=== PATIENT | female | born 2000 | race Caucasian/White ===

== ENCOUNTER 2018-07-01 19:24 | Emergency (ER) | payer OTHER ==
[2018-07-01 19:35] VITALS: BP 130/96
[2018-07-01] MEDS ORDERED: LEVO1TAB75 PO (19:40)
--- NOTE | 2018-07-01 19:56 | ER Report ---
History and Physical Time Seen By MD: 19:46 Hx. of Stated Complaint: PT PULLED LEFT THUMB FINGERNAIL BACK. HPI/ROS CHIEF COMPLAINT: Partial nail avulsion HISTORY OF PRESENT ILLNESS: 17-year-old female patient presents to emergency room with complaint of partial nail avulsion. Patient states that she was walking with her boyfriend ago study which he turned and caught his backpack with her left thumb nail. She states that he pulled the thumbnail back. She states she's noticed some bleeding since then. She states she does have some pain with that. Patient has not taken any medication for this, patient has not tried any treatments. Allergies: Coded Allergies: No Known Drug Allergies (Unverified , 07/01/18) Home Meds Reported Medications Levonorgestrel-Eth Estradiol (LEVORA-28) 1 Each Tablet, 1 EACH PO QDAY 07/01/18 Past Medical/Surgical History Patient has a past medical history of migraines, bronchitis, depression. Patient has a surgical history of tonsillectomy. Reviewed Nurses Notes: Yes Hx Substance Use Disorder: No Hx Alcohol Use: No Constitutional Vital Sign - Last 24 Hours 07/01/18 19:35 Temp 97.9 Pulse 108 Resp 18 B/P (MAP) 130/96 Pulse Ox 96 O2 Delivery Room Air Physical Exam General appearance: Alert no distress. Respiratory: Chest is non tender, lungs are clear to auscultation. Cardiac: Regular rate and rhythm. Skin: The left thumb nail has been mostly avulsed. It is hanging on by the medial aspect. DIFFERENTIAL DIAGNOSIS: After history and physical exam differential diagnosis was considered for partial nail avulsion Medical Decision Making ED Course/Re-evaluation ED Course Patient was admitted to an exam room, history of physical were obtained. Differential diagnoses were considered. On examination patient has a partial avulsion of the left thumbnail. With patient's consent the thumb was anest hetized. When she stated adequately anesthetized I was able to evaluated better. She had avulsed the vast majority of the thumbnail. I opted to go ahead and remove the rest of thumbnail for. She verbalized understanding and agreement. That was done without any difficulties. The nailbed was then dressed with bacitracin, Telfa, Kerlix and Coban. Patient tolerated procedure well. We will go ahead and discharge her home at this time. She states Tylenol) for pain. She is to monitor for any signs of infection. She is to follow-up with her primary care provider with any concerns. Patient verbalized understanding and agreement with plan. Decision to Disposition Date: Jul 01, 2018 Decision to Disposition Time: 20:34 Depart Departure Latest Vital Signs Vital Signs Date Time Temp Pulse Resp B/P (MAP) Pulse Ox O2 Delivery O2 Flow Rate FiO2 07/01/18 19:35 97.9 108 18 130/96 96 Room Air Impression: Primary Impression: Nail avulsion, finger Condition: Improved Disposition: HOME OR SELF-CARE Patient Instructions: Nail Avulsion (ED) Additional Instructions: Limit activity by pain. Take Tylenol or Ibuprofen as needed for pain. You will be feeling better in the next 1-2 days. You may change the dressing as needed. Follow up with your primary care provider in the next 1-2 weeks with any concerns. Return to the ER if condition worsens. Problem Qualifiers Primary Impression: Nail avulsion, finger Encounter type: initial encounter Qualified Codes: S61.309A - Unspecified open wound of unspecified finger with damage to nail, initial encounter JOSE WONG Jul 01, 2018 19:56
== END 2018-07-01 20:45 | disposition home or self-care (01) ==
LOC: ER 19:51
DX: S61.102A Unspecified open wound of left thumb with damage to nail, initial encounter (principal)
CPT/HCPCS: 99283